=== PATIENT | female | born 1950 ===

== ENCOUNTER 2021-01-08 06:00 | Outpatient (RCR) | payer MEDICARE, SELFPAY | END 2021-01-10 23:59 | disposition home or self-care (01) | LOC: MPT 06:00 | PROVIDERS: Referring Provider Nurse Practitioner; Visit Provider Nurse Practitioner | DX: M54.5 Low back pain (principal) | CPT/HCPCS: 97110; 97161 ==

== ENCOUNTER 2021-04-11 06:00 | Outpatient (RCR) | payer MEDICARE, SELFPAY | END 2021-04-12 23:59 | disposition home or self-care (01) | LOC: MPT 06:00 | PROVIDERS: Referring Provider Nurse Practitioner; Visit Provider Nurse Practitioner | DX: M54.50 Low back pain, unspecified (principal) | CPT/HCPCS: 97110; 97161 ==

== ENCOUNTER 2021-04-13 06:00 | Outpatient (RCR) | payer MEDICARE, SELFPAY | END 2021-05-13 23:59 | disposition home or self-care (01) | LOC: MPT 06:00 | PROVIDERS: Referring Provider Nurse Practitioner; Visit Provider Nurse Practitioner | DX: M54.50 Low back pain, unspecified (principal) | CPT/HCPCS: 97110 ==

== ENCOUNTER 2021-06-05 12:58 | Outpatient (RCR) | payer MEDICARE, SELFPAY | END 2021-06-10 23:59 | disposition home or self-care (01) | LOC: MPT 12:58 | PROVIDERS: Visit Provider Nurse Practitioner | DX: M54.50 Low back pain, unspecified (principal) | CPT/HCPCS: 97110 ==

== ENCOUNTER 2022-02-11 06:00 | Outpatient (RCR) | payer MEDICARE, SELFPAY | END 2022-03-10 16:10 | disposition home or self-care (01) | LOC: MPT 06:00 | PROVIDERS: Visit Provider Neurological Surgery | DX: M48.02 Spinal stenosis, cervical region (principal); M43.12 Spondylolisthesis, cervical region; M54.2 Cervicalgia | CPT/HCPCS: 97110; 97140; 97162 ==